=== PATIENT | male | born 1940 | race Caucasian/White ===

== ENCOUNTER → 2017-04-11 | Outpatient (CLI) | payer MEDICARE, OTHER | END | disposition home or self-care (01) | LOC: CFH 11:09 | PROVIDERS: ATTEND Dermatology | DX: C43.62 Malignant melanoma of left upper limb, including shoulder (principal) | CPT/HCPCS: 71020 ==

== ENCOUNTER 2020-01-28 08:03 | Outpatient (CLI) | payer MEDICARE, OTHER ==
[2020-01-28] MEDS ORDERED: REGADENOSON 0.4 MG/5 ML SYRINGE ONE (12:05)
== END 2020-01-28 23:59 | disposition home or self-care (01) ==
LOC: CFH 08:03
PROVIDERS: ATTEND Internal Medicine Cardiovascular Disease
DX: I10 Essential (primary) hypertension (principal); Z95.5 Presence of coronary angioplasty implant and graft
CPT/HCPCS: 78452; 93017; A9502; J2785